=== PATIENT | male | born 1945 | race Caucasian/White ===

== ENCOUNTER 2016-08-23 14:05 | Emergency (ER) | payer MEDICARE, OTHER ==
[~2016-08-23] VITALS: Ht 182.9 cm; Wt 82.6 kg
[~2016-08-23 14:05] MED LIST: AMOX500C2 PO; ASCO500T20 PO; ASPI-892 PO; BISO1TAB6 PO; CYCL10TA9 PO; GLUC-113 PO; HYDR-3812 PO; MELO15TA14 PO; MULT-974 PO; OMEG1CAP51 PO; OMEP40CA36 PO; PRD20T PO; RESV100C PO
--- OUTSIDE RECORDS SUMMARY | 2016-08-23 14:10 | XMS REPORT | Continuity of Care Document ---
Author Author [facility] Organization [facility] Address Unknown Phone Unavailable Care Team Providers Care Silversmith Apprentice Name Role Phone JOAQUIN ELLINGTON MD PCP Insurance Providers Payer Name Policy Number Subscriber Name Relationship Wps Medicare [id number] Fahad Almaguer I 18 Self / Same As Patient Humana [id number] Fahad Almaguer I 18 Self / Same As Patient Advance Directives Directive Response Recorded Date/Time Advance Directives No 01/11/15 2:05am Health Care Power of Forest Botany Instructor No 01/11/15 2:05am Organ Donor Yes 01/11/15 2:05am Resuscitation Status Full Code 01/11/15 2:05am Chief Complaint and Reason for Visit Chief Complaint HYPOXIA;ELEVATED D-DIMER;ARF;DEHYDRATION;FEVER Reason for Visit Elevated d-dimer Fever Acute renal failure Hypoxia Dehydration Elevated d-dimer Problems Medical Problems Problem Onset Date Status Elevated d-dimer Unknown Active Fever Unknown Active Acute renal failure Unknown Active Hypoxia Unknown Active Dehydration Unknown Active Elevated d-dimer Unknown Active Medications Medication Dose Route Sig Days/Qty Instructions Order Date Discontinued Date Status Omeprazole 40 Mg PO DAILY 01/11/15 Active Bisoprolol Fumarate/HCTZ 1 Tab PO DAILY 01/11/15 Active Multivitamin 1 Tab PO DAILY 01/11/15 Active Aspirin 81 Mg PO DAILY 01/11/15 Active Ascorbic Acid 500 Mg PO DAILY 01/11/15 Active Gluc 2KCL/Chondr/Laureen Hy/Hy Ac 2 Cap PO DAILY 01/11/15 Active Resveratrol 100 Mg PO DAILY 01/11/15 Active Docosahexanoic Acid/Epa 1,000 Mg PO DAILY 01/11/15 Active Social History Social History Problem Response Recorded Date/Time Alcohol Use Occasionally Uses 01/11/2015 2:05am Recreational Drug Use No 01/11/2015 2:05am Recent Foreign Travel No 01/11/2015 2:05am Recent Infectious Disease Exposure No 01/11/2015 2:05am Sexually Transmitted Disease No 01/11/2015 2:05am HIV/AIDS No 01/11/2015 2:05am Smoking Status Never a Smoker 01/11/2015 2:05am Query Response Start Date Stop Date Smoking Status Never a Smoker Hospital Discharge Instructions No hospital discharge instructions. Plan of Care Discharge Date 01/12/15 10:18am Disposition 30 STILL A PATIENT Instructions/Education Provided Dehydration (GEN) Forms Provided PDI Medical Prescriptions See Medications Section Referrals (Unspecified) Reason(s) for Referral: FOLLOW UP WITH DR. RODRIGUEZ ON FEBRUARY 08, 2015 AT 1:30 P.M. IF YOU HAVE ANY QUESTIONS YOU MAY CALL: [phone] DR. ELLINGTON (Unspecified) Reason(s) for Referral: FOLLOW UP January AT 0953 DR [id number] Functional Status Query Response Date Recorded Comprehension Ability Understands Concepts January 12, 2015 8:00am Allergies, Adverse Reactions, Alerts Allergen Type Severity Reaction Status Last Updated No Known Drug Allergies Active 01/10/15 Immunizations Name Given Type Date of Pneumonia Vaccine 06/13/12 Historical Tetanus Booster (TDap) Unknown Historical Vital Signs Acute Vital Signs Vital Response Date/Time Temperature (Fahrenheit) 98.6 degrees F (97.6 - 99.5) Temperature (Calculated Celsius) 37.26275 degrees C (36.4 - 37.5) Temperature Source Tympanic Pulse Rate (adult) 67 bpm (60 - 90) Respiratory Rate 20 bpm (12 - 24) O2 Sat by Pulse Oximetry 91 % (88 - 100) Blood Pressure 151/82 mm Hg Pain Pain Intensity 0 Height (Feet) 6 feet Height (Inches) 0.00 inches Height (Calculated Centimeters) 182.041481 cm Weight (Pounds) 190 pounds Weight (Ounces) 0.0 oz Weight (Calculated Grams) 67747.551 gm Weight (Calculated Kilograms) 86.175800 kilograms Calculated BMI 25.77 Results Laboratory Results Test Name Result Units Flags Reference Collection Date/Time Result Date/ Time Comments White Blood Count 10.2 10^3/uL 4.3-11.0 01/11/2015 7:03am 01/11/2015 7: 36am Red Blood Count 4.35 10^6/uL 4.35-5.85 01/11/2015 7:0301/11/2015 7: 36am Hemoglobin 13.0 G/DL L 13.3-17.7 01/11/2015 7:0301/11/2015 7:36am Hematocrit 38 % L 40-54 01/11/2015 7:01/11/2015 7:36am Mean Corpuscular Volume 88 FL 80-99 01/11/2015 7:01/11/2015 7: 36am Mean Corpuscular Hemoglobin 30 PG 25-34 01/11/2015 7:01/11/2015 7: 36am Mean Corpuscular Hemoglobin Concent 34 G/DL 32-36 01/11/2015 7:03 7:36am Red Cell Distribution Width 12.9 % 10.0-14.5 01/11/2015 7:2014 7:36am Platelet Count 94 10^3/uL L 130-400 01/11/2015 7:01/11/2015 7:36am Mean Platelet Volume 9.4 FL 7.4-10.4 01/11/2015 7:01/11/2015 7: 36am Neutrophils (%) (Auto) 95 % H 42-75 01/11/2015 7:0301/11/2015 7:36am Lymphocytes (%) (Auto) 3 % L 12-44 01/11/2015 7:01/11/2015 7:36am Monocytes (%) (Auto) 1 % 0-12 01/11/2015 7:01/11/2015 7:36am Eosinophils (%) (Auto) 2 % 0-10 01/11/2015 7:0301/11/2015 7:36am Basophils (%) (Auto) 0 % 0-10 01/11/2015 7:0301/11/2015 7:36am Neutrophils # (Auto) 9.7 X 10^3 H 1.8-7.8 01/11/2015 7:03am 01/11/2015 7: 36am Lymphocytes # (Auto) 0.3 X 10^3 L 1.0-4.0 01/11/2015 7:0301/11/2015 7: 36am Monocytes # (Auto) 0.1 X 10^3 0.0-1.0 01/11/2015 7:03am 01/11/2015 7: 36am Eosinophils # (Auto) 0.2 10^3/uL 0.0-0.3 01/11/2015 7:0301/11/2015 7 :36am Basophils # (Auto) 0.0 10^3/uL 0.0-0.1 01/11/2015 7:03am 01/11/2015 7: 36am Neutrophils % (Manual) 76 % 01/10/2015 11:34pm 01/11/2015 1:13am Band Neutrophils 16 % 01/10/2015 11:34pm 01/11/2015 1:13am Lymphocytes % (Manual) 8 % 01/10/2015 11:34pm 01/11/2015 1:13am Monocytes % (Manual) 0 % 01/10/2015 11:34pm 01/11/2015 1:13am Eosinophils % (Manual) 0 % 01/10/2015 11:34pm 01/11/2015 1:13am Basophils % (Manual) 0 % 01/10/2015 11:34pm 01/11/2015 1:13am Blood Morphology Comment NORMAL 01/10/2015 11:34pm 01/11/2015 1: 13am D-Dimer > 20.00 UG/ML CH 0.00-0.49 01/10/2015 11:34pm 01/11/2015 1:09am RESULTS CALLED [place]AS[place] AT 0109. RESULTS READ BACK: YES. Urine Color YELLOW 01/11/2015 1:01am 01/11/2015 1:16am Urine Clarity SLIGHTLY CLOUDY 01/11/2015 1:01am 01/11/2015 1:16am Urine pH 5 5-9 01/11/2015 1:01am 01/11/2015 1:16am Urine Specific [place] 1.020 1.016-1.022 01/11/2015 1:2014 1:16am Urine Protein 3+ * NEGATIVE 01/11/2015 1:01/11/2015 1:16am Urine Glucose (UA) NEGATIVE NEGATIVE 01/11/2015 1:01/11/2015 1: 16am Urine RBC (Auto) 2+ * NEGATIVE 01/11/2015 1:01/11/2015 1:16am Urine Ketones 1+ * NEGATIVE 01/11/2015 1:01/11/2015 1:16am Urine Nitrite NEGATIVE NEGATIVE 01/11/2015 1:01/11/2015 1:16am Urine Bilirubin NEGATIVE NEGATIVE 01/11/2015 1:01/11/2015 1: 16am Urine Urobilinogen NORMAL MG/DL NORMAL 01/11/2015 1:01/11/2015 1: 16am Urine Leukocyte Esterase 1+ * NEGATIVE 01/11/2015 1:01/11/2015 1: 16am Urine RBC 10-25 /HPF * 01/11/2015 1:01/11/2015 1:16am Urine WBC RARE /HPF 01/11/2015 1:01/11/2015 1:16am Urine Bacteria NEGATIVE /HPF 01/11/2015 1:01/11/2015 1:16am Urine Squamous Epithelial Cells NONE /HPF 01/11/2015 1:2014 1:16am Urine Crystals PRESENT /LPF * 01/11/2015 1:01/11/2015 1:16am Urine Amorphous Sediment LARGE SURINDER URATES /LPF * 01/11/2015 1: 1:16am Urine Casts NONE /LPF 01/11/2015 1:01/11/2015 1:16am Urine Mucus NEGATIVE /LPF 01/11/2015 1:01/11/2015 1:16am Urine Culture Indicated NO 01/11/2015 1:01/11/2015 1:16am Sodium Level 138 MMOL/L 135-145 01/11/2015 7:01/11/2015 7:55am Potassium Level 4.1 MMOL/L 3.6-5.0 01/11/2015 7:01/11/2015 7:55am Chloride Level 106 MMOL/L 98-107 01/11/2015 7:0301/11/2015 7:55am Carbon Dioxide Level 21 MMOL/L 21-32 01/11/2015 7:0301/11/2015 7: 55am Blood Urea Nitrogen 34 MG/DL H 7-18 01/11/2015 7:0301/11/2015 7:55am Creatinine 1.62 MG/DL H 0.60-1.30 01/11/2015 7:0301/11/2015 7:55am BUN/Creatinine Ratio 21 01/11/2015 7:0301/11/2015 7:55am Estimat Glomerular Filtration Rate 43 01/11/2015 7:0301/11/2015 7:55am GFR INTERPRETIVE DATA UNITS FOR ESTIMATED GFR (eGFR): mL/min/1.73 M2 REFERENCE RANGE FOR ESTIMATED GFR (eGFR) eGFR NORMAL eGFR >60 MODERATELY DECREASED eGFR 30-59 SEVERLY DECREASED eGFR 15-29 KIDNEY FAILURE <15 (OR DIALYSIS) Glucose Level 117 MG/DL H 70-105 01/11/2015 7:0301/11/2015 7:55am Calcium Level 9.2 MG/DL 8.5-10.1 01/11/2015 7:0301/11/2015 7:55am Magnesium Level 1.7 MG/DL L 1.8-2.4 01/10/2015 11:3401/11/2015 12: 11am Total Bilirubin 0.6 MG/DL 0.1-1.0 01/10/2015 11:3401/11/2015 12: 11am Alkaline Phosphatase 96 U/L 40-136 01/10/2015 11:3401/11/2015 12: 11am Aspartate Amino Transf (AST/SGOT) 107 U/L H 5-34 01/10/2015 11:3401/11 12:11am Alanine Aminotransferase (ALT/SGPT) 42 U/L 0-55 01/10/2015 11:34 12:11am Total Creatine Kinase 47 U/L 30-200 01/10/2015 11:3401/11/2015 12: 11am Troponin I < 0.30 NG/ML <0.30 01/10/2015 11:3401/11/2015 1:01am Myoglobin 176.6 NG/ML H 10.0-92.0 01/11/2015 7:03am 01/11/2015 8:16am Total Protein 8.5 G/DL H 6.4-8.2 01/10/2015 11:34pm 01/11/2015 12:11am Albumin 4.2 G/DL 3.2-4.5 01/10/2015 11:34pm 01/11/2015 12:11am Procedures Procedure Status Date Provider(s) Tracing only of electrocardiogram completed 01/11/15 MINE FARAH MD Encounters Encounter Location Date/Time Discharged Inpatient Via [facility] 01/11/15 1:29am Recent Diagnosis Elevated d-dimer Fever Acute renal failure Hypoxia Dehydration Elevated d-dimer
--- NOTE | 2016-08-23 15:10 | ED Back Pain ---
General Chief Complaint: Back Problems Stated Complaint: LOWER BACK PAIN Nursing Triage Note: PT C/O CHRONIC LOW BACK PAIN. HE REPORTS HE HAS TAKEN 2 OXYCODONE AND A FLEXERIL AT 1230 WITH NO RELIEF. Nursing Sepsis Screen: No Definite Risk Source of Information: Patient Exam Limitations: No Limitations History of Present Illness Time Seen by Provider: 15:10 Initial Comments 70-year-old male patient presents to the emergency department complains of low back pain increased today. States yesterday he drove to [place] [facility]. 2 days ago he was played 2 games of basketball and worked out. Reports pain began at noon today. Took 2 oxycodone and a Flexeril at 1230 without improvement in symptoms. Denies bowel incontinence, bladder, numbness, weakness , tingling. Location: Lumbar Spine, Paraspinous Muscles Timing/Duration: Other (chronic pain, worse today.) Pain/Injury Location: Back Radiation: Other (pain radiates down the bilat buttocks and thighs.) Method of Injury: Unknown Modifying Factors: Improves With Immobilization, Worse With Movement, Worse With Pain Medication Associated Symptoms: muscle spasmsNo fever, No weakness, No numbness in legs/ feet, No tingling in legs/feet, No sensory/motor loss, lower back painNo loss of bladder control, No loss of bowel control Allergies and Home Medications Allergies Coded Allergies: No Known Drug Allergies (Unverified , 01/10/15) Home Medications Amoxicillin 500 Mg Capsule #30 1 CAP PO TID (Reported) Ascorbic Acid 500 Mg Tablet 500 MG PO DAILY (Reported) Aspirin 81 Mg Tabec 81 MG PO BID (Reported) Bisoprol/Hydrochlorothiazide 1 Each Tablet 1 TAB PO DAILY (Reported) Cyclobenzaprine HCl 10 Mg Tablet #14 10 MG PO Q8H PRN PRN SPASMS Prescribed by: ELADIO ATKINS on 07/10/162105 Docosahexanoic Acid/Epa 1 Cap Capsule 1,000 MG PO DAILY (Reported) Gluc 2KCL/Chondr/Laureen Hy/Hy Ac 1 Each Capsule 2 CAP PO DAILY (Reported) Hydrocodone/Acetaminophen 1 Each Tablet #30 1-2 EACH PO Q4H PRN PRN PAIN Prescribed by: ELADIO ATKINS on 07/10/162050 Meloxicam 15 Mg Tablet #20 15 MG PO DAILY Prescribed by: ELADIO ATKINS on 07/10/162105 Multivitamin 1 Each Tablet 1 TAB PO DAILY (Reported) Omeprazole 40 Mg Capsule.dr 40 MG PO DAILY (Reported) Prednisone 20 Mg Tab #10 40 MG PO DAILY Prescribed by: ELADIO ATKINS on 07/10/162105 Constitutional: no symptoms reported EENTM: no symptoms reported Respiratory: no symptoms reported Cardiovascular: no symptoms reported Gastrointestinal: No abdominal pain, No constipation, No diarrhea, No nausea, No vomiting Genitourinary: no symptoms reported Musculoskeletal: see HPI back pain muscle painNo neck pain Skin: no symptoms reported Psychiatric/Neurological: Denies Headache, Denies Numbness, Denies Paresthesia , Denies Tingling, Denies Weakness All Other Systems Reviewed Negative Unless Noted: Yes (Negative excepted noted.) Past Xkuieyh-Ynksqe-Ccawzm Hx Patient Social History Alcohol Use: Occasionally Uses Recreational Drug Use: No Smoking Status: Never a Smoker Recent Foreign Travel: No Contact w/Someone Who Travel: No Recent Infectious Disease Expo: No Recent Hopitalizations: No Physical Abuse Screen: No Sexual Abuse: No Immunizations Up To Date Tetanus Booster (TDap): Unknown Date of Pneumonia Vaccine: Jun 17, 2016 Date of Influenza Vaccine: Jun 17, 2016 Seasonal Allergies Seasonal Allergies: No Surgeries HX Surgeries: Yes (HIATAL HERNIA, KNEE SCOPE) Surgeries: Abdominal, Adenoidectomy, Appendectomy, Orthopedic, Tonsillectomy Respiratory Hx Respiratory Disorders: No Cardiovascular Hx Cardiac Disorders: Yes Cardiac Disorders: Hypertension Neurological Hx Neurological Disorders: No Reproductive System Hx Reproductive Disorders: No Sexually Transmitted Disease: No HIV/AIDS: No Genitourinary Hx Genitourinary Disorders: No Gastrointestinal Hx Gastrointestinal Disorders: Yes Gastrointestinal Disorders: Gastroesophageal Reflux, Polyps, Hiatal Hernia Musculoskeletal Hx Musculoskeletal Disorders: Yes (lt knee arthitis) Musculoskeletal Disorders: Arthritis, Chronic Back Pain Endocrine Hx Endocrine Disorders: No HEENT HX ENT Disorders: No (cataract surg) HEENT Disorders: Cataract Loss of Vision: Denies Hearing Impairment: Denies Cancer Hx Cancer: No Psychosocial Hx Psychiatric Problems: No Integumentary HX Skin/Integumentary Disorder: No Blood Transfusions Hx Blood Disorders: No Reviewed Nursing Assessment Reviewed/Agree w Nursing PMH: Yes Family Medical History Significant Family History: Cancer Family Medial History: FH: stomach cancer 19 FATHER, Onset:60 years & older Physical Exam Vital Signs Vital Sign - Last 12Hours 08/23/16 14:27 Temp 97.4 Pulse 56 Resp 16 B/P 167/89 Pulse Ox 98 O2 Delivery Room Air Capillary Refill : Less Than 3 Seconds General Appearance: No Apparent Distress WD/WN HEENT: PERRL/EOMI Pharynx Normal Neck: Full Range of Motion Normal Inspection Non Tender Supple Cardiovascular: Regular Rate, Rhythm No Edema No Murmur Normal Peripheral Pulses Respiratory: Lungs Clear Normal Breath Sounds No Respiratory Distress Peripheral Pulses: 2+ Dorsalis Pedis (R), 2+ Left Dors-Pedis (L), 2+ Radial Pulses (R), 2+ Radial Pulses (L) Gastrointestinal: Normal Bowel Sounds No Pulsatile Mass Non Tender SoftNo Distended Back: Normal Inspection No Vertebral Tenderness (unable to reproduce vertebral tenderness on exam.) Muscle Spasm Extremity: Normal Capillary Refill Normal Inspection Normal Range of Motion No Calf Tenderness No Pedal Edema Other (bilat buttocks and proximal posteriolateral thighs ttp.) Neurologic/Psychiatric: Alert Oriented x3 No Motor/Sensory Deficits Normal Mood/Affect Skin: Normal Color Warm/Dry Progress/Results/Core Measures Results/Orders My Orders Orders-ELADIO ATKINS Ibuprofen Tablet (Motrin Tablet) (08/23/16 15:22) Morphine Injection (Morphine Injection (08/23/16 15:22) Vital Signs/I&O Vital Sign - Last 12Hours 08/23/16 14:27 Temp 97.4 Pulse 56 Resp 16 B/P 167/89 Pulse Ox 98 O2 Delivery Room Air Blood Pressure Mean: 115 Departure Communication Progress Notes 1555 patient case discussed with Dr. Green, recommends follow-up as an outpatient in his office for recheck and further evaluation. 1600 patient reports feeling much better with medications given. Recommendations by Dr. Green discussed with the patient. Plan for discharge to home. Patient instructed to continue oxycodone and Flexeril as prescribed by his physician. Return instructions discussed with the patient as described in the discharge instructions. Patient voices understanding and agrees with the treatment plan. Patient ambulated from the emergency department without difficulty. Impression Impression: Primary Impression: Acute exacerbation of chronic low back pain Disposition: HOME, SELF-CARE Condition: Improved Departure-Patient Inst. Decision time for Depature: 15:24 Referrals: GUI HAWLEY DO (PCP/Family) Primary Care Physician Patient Instructions: Radiculopathy (DC), Low Back Pain (DC) Add. Discharge Instructions: All discharge instructions reviewed with patient and/or family. Voiced understanding. Continue home medications as directed. Motrin 800 mg by mouth every 8 hours as needed for pain. Ice packs or heating pads as needed for pain. No heavy lifting or high impact activities until released by your physician. Follow-up with Dr. Green as an outpatient for recheck, call for appointment time Thursday. Return to the emergency department for worsened pain, numbness, weakness, bowel incontinence, bladder incontinence, abdominal pain, difficulty with urination, or any other concerns. ELADIO ATKINS Aug 23, 2016 15:10
[2016-08-23] MEDS ORDERED: morphine INJ 10 MG/ML 1ML (SYR OR VIAL) IM STA (15:22)
[2016-08-23] MEDS ORDERED: IBUPROFEN 800 MG (MOTRIN) TAB PO STA (15:22)
[2016-08-23 16:13] VITALS: BP 167/89
== END 2016-08-23 16:13 | disposition home or self-care (01) ==
LOC: EDUNIT# 14:05 → ER 14:06
DX: M54.5 Low back pain (principal); G89.29 Other chronic pain; I10 Essential (primary) hypertension; Z79.82 Long term (current) use of aspirin; Z79.899 Other long term (current) drug therapy
CPT/HCPCS: 96372; 99281

== ENCOUNTER → 2016-09-08 | Outpatient (CLI) | payer MEDICARE, OTHER ==
--- OUTSIDE RECORDS SUMMARY | 2016-09-08 10:37 | XMS REPORT | Continuity of Care Document ---
Author Author [facility] Organization [facility] Address Unknown Phone Unavailable Care Team Providers Care Tractor Operator Laser Leveling Name Role Phone JOAQUIN ELLINGTON MD PCP Insurance Providers Payer Name Policy Number Subscriber Name Relationship Wps Medicare [id number] Fahad Almaguer I 18 Self / Same As Patient Humana [id number] Fahad Almaguer I 18 Self / Same As Patient Advance Directives Directive Response Recorded Date/Time Advance Directives No 01/11/15 2:05am Health Care Power of Clinical Informatics Strategist No 01/11/15 2:05am Organ Donor Yes 01/11/15 [...] YOU HAVE ANY QUESTIONS YOU MAY CALL: [phone] DR. ELLINGTON (Unspecified) Reason(s) for Referral: FOLLOW UP January AT 0990 DR [id number] Functional Status Query Response Date Recorded Comprehension [...] F (97.6 - 99.5) Temperature (Calculated Celsius) 37.63131 degrees C (36.4 - 37.5) Temperature Source Tympanic Pulse Rate (adult) 67 bpm (60 - 90) Respiratory Rate 20 bpm (12 - 24) O2 Sat by Pulse Oximetry 91 % (88 - 100) Blood Pressure 151/82 mm Hg Pain Pain Intensity 0 Height (Feet) 6 feet Height (Inches) 0.00 inches Height (Calculated Centimeters) 182.684761 cm Weight (Pounds) 190 pounds Weight (Ounces) 0.0 oz Weight (Calculated Grams) 60050.551 gm Weight (Calculated Kilograms) 86.502271 kilograms Calculated BMI 25.77 Results Laboratory Results [...] 5-9 01/11/2015 1:01am 01/11/2015 1:16am Urine Specific [place] 1.020 1.016-1.022 01/11/2015 1:2014 1:16am Urine Protein [...] Encounters Encounter Location Date/Time Discharged Inpatient Via [facility] 01/11/15 1:29am Recent Diagnosis Elevated d-dimer Fever Acute renal failure Hypoxia Dehydration Elevated d-dimer
--- NOTE | 2016-09-08 12:01 | Diagnostic Imaging Report ---
PROCEDURE: MRI lumbar spine. TECHNIQUE: Multiplanar, multisequence MRI of the lumbar spine was performed without contrast. INDICATION: Back pain. FINDINGS: The recent MRI lumbar spine exam of 07/18/2016 noted degenerative disc ligamentous and bony disease involving the lower lumbar spine. There was borderline trefoil stenosis at L3-L4 and narrowing of the neural foramen on the left at this level. There was no evidence for spinal stenosis at L4-L5 or L5-S1, but there was moderate narrowing of the neural foramen on the right at L4-L5 and at least moderate narrowing of the neural foramina bilaterally at L5-S1. Those degenerative changes are again evident on this study and do not seem to have progressed. The remainder of the lumbar spine is unremarkable for spinal stenosis or nerve root encroachment. As on the prior exam, there is diminished signal throughout the lumbar vertebra on the T1 series. The diffuse nature of this suggests that this finding is more likely due to degenerative disease than to an extensive marrow replacement process. If further imaging is desired, then a nuclear medicine bone scan will be recommended, however. There is no abnormal signal arising from the osseous structures to suggest bone edema or fracture. There is no sign of a cord lesion. There is no paraspinal mass visualized. IMPRESSION: 1. When compared to the previous study, there does not appear to have been any significant change. There is still degenerative disc ligamentous and bony disease involving the lower lumbar spine. No new area of spinal stenosis or nerve root encroachment has developed otherwise. 2. The abnormal signal throughout the vertebral bodies seen previously is again evident and unchanged. This finding is more likely due to degenerative disease than to an extensive marrow replacement process. Recommendations as above. Dictated by: Dictated on workstation # [id number]
== END ==
LOC: RAD 10:33
PROVIDERS: ATTEND Family Medicine
DX: M51.16 Intervertebral disc disorders with radiculopathy, lumbar region (principal)
CPT/HCPCS: 72148

== ENCOUNTER 2019-02-02 05:35 | Outpatient (CLI) | payer MEDICARE ==
[~2019-02-02] VITALS: Ht 182.9 cm; Wt 82.6 kg
[~2019-02-02 05:35] MED LIST changes: +ACHD5005 PO; -HYDR-3812 PO
[2019-02-02] MEDS ORDERED: ASCO500T7 PO (12:35)
[2019-02-02] MEDS ORDERED: OMG1KC PO (12:35)
[2019-02-02] MEDS ORDERED: BISO1TAB6 PO (12:35)
[2019-02-02] MEDS ORDERED: ASPI-999 PO (12:35)
[2019-02-02] MEDS ORDERED: OMEP40CA36 PO (12:35)
[2019-02-02] MEDS ORDERED: GLUC-173 PO (12:35)
[2019-02-02] MEDS ORDERED: MULT1CAP27 PO (12:35)
== END 2019-02-02 12:47 | disposition home or self-care (01) ==
LOC: PREOP 05:35
PROVIDERS: ATTEND Surgery
DX: Z01.818 Encounter for other preprocedural examination (principal)

== ENCOUNTER 2019-02-09 09:16 | Day surgery (SDC) | payer MEDICARE, OTHER ==
[~2019-02-09 09:16] MED LIST changes: +ASCO500T7 PO; +ASPI-999 PO; +GLUC-173 PO; +MULT1CAP27 PO; +OMG1KC PO
[2019-02-09] MEDS ORDERED: NS IV 500 ML 500 ML ONE (09:18)
[2019-02-09] MEDS ORDERED: NS IV 500 ML 500 ML IV PRN (09:28)
[2019-02-09] MEDS ORDERED: HURRICAINE EXT TUBE (BENZOCAINE) XX PRN (09:30)
[2019-02-09] MEDS ORDERED: fentaNYL INJECTION 100 MCG/2 ML AMP IVP ONE (09:30)
[2019-02-09] MEDS ORDERED: MIDAZOLAM 2 MG/2 ML (VERSED) VIAL IVP ONE (09:30)
[2019-02-09] MEDS ORDERED: LIDOCAINE JELLY 2% 6 ML SYRINGE MM PRN (09:30)
[2019-02-09 09:59] VITALS: BP 194/101
[2019-02-09] MEDS ORDERED: MIDAZOLAM 2 MG/2 ML (VERSED) VIAL ONE ×4 (10:13→10:14)
[2019-02-09] MEDS ORDERED: fentaNYL INJECTION 100 MCG/2 ML AMP ONE (10:14)
[2019-02-09] MEDS ORDERED: LIDOCAINE JELLY 2% 6 ML SYRINGE ONE (10:14)
[2019-02-09] MEDS ORDERED: HURRICAINE EXT TUBE (BENZOCAINE) ONE (10:14)
--- NOTE | 2019-02-09 11:16 | Conscious Sedation/ASA ---
Conscious Sedation Pre-Proced Time 10:00 ASA Score 2 For ASA 3 and 4: Consider anesthesia and medical clearance. Also, for patients with a history of failed moderate sedation consider anesthesia. Airway Lungs Heart ASA score ASA 1: a normal healthy patient ASA 2: a patient with a mild systemic disease (mid diabetes, controlled hypertension, obesity ASA 3: a patient with a severe systemic disease that limits activity (angina, COPD, prior Myocardial infarction) ASA 4: a patient with an incapacitating disease that is a constant threat to life (CHF, renal failure) ASA 5: a moribund patient not expected to survive 24 hrs. (ruptured aneurysm) ASA 6: a declared brain- patient whose organs are being harvested. For emergent operations, add the letter E after the classification Mallampati Classification Grade 2 Sedation Plan Analgesia, Amnesia, Plan communicated to team members, Discussed options with patient/fam, Discussed risks with patient/fam The patient is an appropriate candidate to undergo the planned procedure, sedation, and anesthesia. The patient immediately re-assessed prior to indication. JETT WELDON MD Feb 09, 2019 11:16
--- NOTE | 2019-02-09 11:17 | Progress Note-Pre Operative ---
Pre-Operative Progress Note H&P Reviewed The H&P was reviewed, patient examined and no changes noted. Date Seen by Provider: Feb 09, 2019 Time Seen by Provider: 10:00 Date H&P Reviewed: Feb 09, 2019 Time H&P Reviewed: 10:00 Pre-Operative Diagnosis: hx roy's, screening o JETT WELDON MD Feb 09, 2019 11:17
--- NOTE | 2019-02-09 11:19 | Discharge Inst-Surgical ---
D/C Lap Instructions-FATEMEH Follow Up Activity as tolerated Regular Diet Symptoms to Report: Fever over 101 degree F, Nausea/Vomiting Infection Signs and Symptoms to report: Increased redness, Foul odor of wound, Increased drainage Bathing instructions: May shower Operative Area Clean/Dry; Keep incision clean/dry If any problems/questions: Contact your physician or go to Emergency Room JETT WELDON MD Feb 09, 2019 11:19
[2019-02-09] MEDS ORDERED: HYDROcodone/APAP 5 MG/325 MG (LORTAB) TAB PO PRN (11:30)
[2019-02-09] MEDS ORDERED: ONDANSETRON 4 MG/2 ML (SDV) Z0FRAN IVP PRN (11:30)
[2019-02-09] MEDS ORDERED: morphine INJ 10 MG/ML 1ML (SYR OR VIAL) IVP PRN ×2 (11:30)
[2019-02-09] MEDS ORDERED: ACETAMINOPHEN 325 MG TABLET PO PRN (11:30)
--- NOTE | 2019-02-09 12:13 | Progress Note-Post Operative ---
Post-Operative Progess Note Surgeon (s)/Supervisor Drying And Winding (s) Surgeon JETT WELDON MD Supervisor Drying And Winding: none Pre-Operative Diagnosis hx roy's, screening colo Post-Operative Diagnosis reflux esophagitis(stage 2), no recurrent HH, mild gastritis. Procedure & Operative Findings Date of Procedure 02/09/19 Procedure Performed/Findings EGD with bx. colonoscopy Anesthesia Type cs Estimated Blood Loss Estimated blood loss (mL): minimal Specimens/Packing Specimens Removed ge jxn, antrum JETT WELDON MD Feb 09, 2019 12:13
[2019-02-09 12:25] VITALS: BP 151/86
[2019-02-09 12:55] VITALS: BP 191/101
[2019-02-09 13:15] VITALS: BP 191/101
--- NOTE | 2019-02-09 16:35 | OPERATIVE REPORT ---
DATE OF SERVICE: 02/09/2019 ATTENDING PRIMARY CARE PHYSICIAN: Dr. Morrissey. PREOPERATIVE DIAGNOSES: Gastroesophageal reflux disease, family history of gastric cancer, screening colonoscopy. POSTOPERATIVE DIAGNOSES: Reflux esophagitis stage II, intact previous hiatal hernia repair and antireflux procedure, mild gastritis, mild chronic stage II external and internal hemorrhoids, mild sigmoid diverticulosis. PROCEDURE: EGD with biopsy and colonoscopy. SURGEON: Jett Cronin MD ANESTHESIA: Conscious sedation. ESTIMATED BLOOD LOSS: Minimal. FINDINGS: Reflux esophagitis stage II, intact previous hiatal hernia repair and antireflux procedure, mild gastritis, mild chronic stage II external and internal hemorrhoids, mild sigmoid diverticulosis. DISPOSITION: The patient tolerated the procedure well. INDICATION: The patient is a 73-year-old male known to us. We had seen him in 11/2012 for reflux as well as a colonoscopy. At that time, he was found to have a reflux esophagitis stage II, moderate severity gastritis as well as a mild external and internal hemorrhoids and a mild sigmoid diverticulosis. Since that time, he states that he has been doing well. He does report that he does have occasional episodes of reflux; however, not severe. He does have a strong family history of gastric cancer with both his father and paternal great grandfather having the disease. He does have a history of polyp on his first colonoscopy; however, this was biopsied and found to be benign. He also does have a history of Alanis's esophagus diagnosed in 2001. DESCRIPTION OF PROCEDURE: The patient was brought to the endoscopy suite, laid in the left lateral decubitus position. After adequate IV pain and sedative medications and conscious sedation anesthesia, the mouthpiece was applied. Endoscope was placed through the mouth, visualizing the pharynx and hypopharyngeal region. Vocal cords, epiglottis and vallecula were identified and appeared to be normal. The endoscope was then gently intubated at the esophageal opening and esophagus was insufflated. The endoscope was then advanced to the first, second and third portion of the esophagus at the level of the GE junction, a reflux esophagitis stage II identified. There were no ulcers or strictures identified in this region. A biopsy was taken of the GE junction with forceps with visualization of good hemostasis. The endoscope was then advanced in the stomach and the endoscope was retroflexed visualizing no recurrent hiatal hernia as well as an intact previous antireflux procedure. There was a mild gastritis. No formal ulcerations, polyps, or any neoplasms. A biopsy was taken of the antrum to rule out H. pylori with visualization of good hemostasis. The endoscope was then advanced to the pylorus and the first and second portions of duodenum, which appeared normal with no distal obstructions. The endoscope was then slowly withdrawn while taking a second look and suctioning of residual air with no additional findings. The patient tolerated the procedure well. We will recommend continued medical management with the necessary lifestyle and diet accommodation including avoidance of caffeinated beverages, spicy, greasy and acidic foods as well as to take in small and more frequent meals and avoidance of eating at night. Under the same anesthesia, we then proceeded with the colonoscopy portion of the procedure. A digital rectal examination was performed, which revealed mild chronic stage II external and internal hemorrhoids, not actively edematous nor inflamed and no bleeding. Normal sphincter tone was felt and there were no palpable masses. Prostate gland was slightly enlarged; however, there were no palpable masses or nodules. The endoscope was then intubated into the anus and rectum was gently insufflated. The endoscope was then advanced to the valves of White of the rectum with no polyps or any neoplasms identified. Through the sigmoid colon, a mild sigmoid diverticulosis was identified. There were no inflammatory changes to indicate any active diverticulitis. The endoscope was then advanced to the remainder of the descending, transverse and ascending colon to the cecum. These segments are normal. There were no polyps or any neoplasms identified throughout the colon or rectum. The endoscope was then slowly withdrawn while taking a second look and suctioning of residual air with no additional findings. The patient tolerated the procedure well. We will recommend continued medical management with a high fiber diet with at least 30 grams of fiber daily as well as significant amounts of water to promote soft stools on a daily basis. He does not need another colonoscopy for another 10 years. Job ID: [id number] DocumentID: [id number] Dictated Date: 02/09/2019 12:03:55 [employer] Operator Date: 02/09/2019 16:34:39 Dictated By: JETT CRONIN MD
== END 2019-02-09 13:15 | disposition home or self-care (01) ==
LOC: ENDO 09:16
PROVIDERS: ATTEND Surgery
DX: Z12.11 Encounter for screening for malignant neoplasm of colon (principal); K21.0 Gastro-esophageal reflux disease with esophagitis; K29.50 Unspecified chronic gastritis without bleeding; K57.30 Diverticulosis of large intestine without perforation or abscess without bleeding; K64.1 Second degree hemorrhoids; Z86.010 Personal history of colon polyps; Z80.0 Family history of malignant neoplasm of digestive organs; Z87.19 Personal history of other diseases of the digestive system; I10 Essential (primary) hypertension; Z79.82 Long term (current) use of aspirin; Z79.899 Other long term (current) drug therapy; Z87.891 Personal history of nicotine dependence
CPT/HCPCS: 43239; G0105

== ENCOUNTER → 2021-06-17 | Outpatient (CLI) | payer MEDICARE, OTHER ==
[~2021-06-17] MED LIST changes: +BISO-3 PO; +OMEP40CA6 PO
== END ==
LOC: LABNPT 06:12
PROVIDERS: ATTEND Orthopaedic Surgery
DX: Z01.812 Encounter for preprocedural laboratory examination (principal); Z20.822 Contact with and (suspected) exposure to COVID-19
CPT/HCPCS: 87635

== ENCOUNTER → 2021-07-08 | Outpatient (CLI) | payer MEDICARE, OTHER | LOC: LABNPT 06:12 | PROVIDERS: ATTEND Orthopaedic Surgery | DX: Z01.812 Encounter for preprocedural laboratory examination (principal); Z20.822 Contact with and (suspected) exposure to COVID-19 | CPT/HCPCS: 87635 ==